=== PATIENT | male | born 1955 | race Caucasian/White ===

== ENCOUNTER 2019-03-27 08:11 | Outpatient (REF) | payer MEDICAID, SELFPAY ==
[2019-03-27 22:38] LABS: Anion Gap 9.7 mmol/L (3-11); BUN 7 mg/dL (7-18); CO2 28.3 mmol/L (21.0-32.0); Calcium 9.1 mg/dL (8.5-10.1); Calculated LDL 131; Chloride 105 mmol/L (98-107); Cholesterol 220 mg/dL (50-200); Glucose 89 mg/dL (70-100); HDL Cholesterol 33 mg/dL (40-60); Potassium 4.6 mmol/L (3.5-5.1); Sodium 143 mmol/L (136-145); Triglyceride 283 mg/dL (30-150)
== END 2019-03-27 08:31 ==
LOC: NCHCN 08:11
PROVIDERS: Visit Provider Family Medicine
DX: Z13.220 Encounter for screening for lipoid disorders (principal); Z13.228 Encounter for screening for other metabolic disorders; Z00.00 Encounter for general adult medical examination without abnormal findings
CPT/HCPCS: 80048; 80061; 83721

== ENCOUNTER 2022-08-05 10:39 | Outpatient (REF) | payer MEDICARE, MEDICAID, SELFPAY ==
[2022-08-05 17:09] LABS: Calculated LDL 133 mg/dL (<100); Cholesterol 220 mg/dL (<200); HDL Cholesterol 40 mg/dL (40-60); Triglyceride 236 mg/dL (<150)
== END 2022-08-05 10:40 | disposition home or self-care (01) ==
LOC: NCHCN 10:39
PROVIDERS: Visit Provider Family Medicine
DX: E78.5 Hyperlipidemia, unspecified (principal)
CPT/HCPCS: 80061

== ENCOUNTER 2022-08-17 18:08 | Outpatient (REF) | payer MEDICARE, BC, SELFPAY ==
[2022-08-17 14:50] LABS: Vitamin D 25 Total 35.6 ng/mL (30-100)
[2022-08-17 15:03] LABS: Vitamin B12 220 pg/mL (193-986)
== END 2022-08-17 18:09 | disposition home or self-care (01) ==
LOC: NCHCN 18:08
PROVIDERS: Visit Provider Family Medicine
DX: Z00.00 Encounter for general adult medical examination without abnormal findings (principal); I10 Essential (primary) hypertension; Z71.3 Dietary counseling and surveillance
CPT/HCPCS: 82306; 82607

== ENCOUNTER 2023-03-06 20:08 | Outpatient (REF) | payer MEDICARE, BC, SELFPAY ==
[2023-03-06 18:02] LABS: BUN 13 mg/dL (7-18); Calculated LDL 177 mg/dL (<100); Cholesterol 262 mg/dL (<200); Estimated GFR 83.01 (mL/min/1.73m2); HDL Cholesterol 42 mg/dL (40-60); Triglyceride 218 mg/dL (<150); Vitamin B12 346 pg/mL (193-986)
--- OUTSIDE RECORDS SUMMARY | 2023-03-06 20:13 | XMS_ITS | Summary of Care ---
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 Phone Unassigned, PCP - Unable to obtain Primary Care Physician Unavailable Encounter [facility] [id number] Date(s): 12/23/22 - 12/23/22 [facility] [address] [place] [address]- Encounter Diagnosis Sensation of foreign body in foot(Discharge Diagnosis) - 12/23/22 Discharge Disposition: HOME OR SELF CARE Attending Physician: Shital Wesley DO Admitting Physician: UNASSIGNED , ER DOCTOR Allergies, Adverse Reactions, Alerts No Known Allergies Assessment and Plan Extracted from: Title:ED Visit Note Author:Matthew Meadows APR N Date:12/23/22 Assessment/Plan Diagnosis List 1.??Sensation of foreign body in foot??(Other disturbances of skin sensation)(R20.8) RIGHT Foot injury treatment??(Foot injury treatment)([id number]) Orders: doxycycline, 100 mg, = 1 cap(s), PO, q12hr (interval), X 7 day(s), # 14 cap(s), 0 Refill(s), 12/23/22 12:29:00 EST, Pharmacy: [facility]/pharmacy #[id number], 1 cap(s) PO q12hr (interval),x7 day(s), 1, 177.8, cm, 12/23/22 10:29:00 EST, Height cm, 83, kg, 12/23/22 10:29:00 EST,... Royal Wrap Discharge Patient Wound Care ED I had my usual??and customary discussion??with the patient regarding??possible retained foreign body of the right foot, differential diagnosis,??medication prescribed and the indications for return to the emergency department for reevaluation??as well as for follow-up with the freight brakeman and the patient verbalized understanding and agrees with the plan of care. Patient Education Doxycycline tablets or capsules Foreign Body, Soft Tissue (Not Removed) Medications doxycycline hyclate 100 mg oral capsule 100 mg, = 1 cap(s), PO, q12hr (interval), X 7 day(s), # 14 cap(s), 0 Refill(s), 12/23/22 12:29:00 EST, Pharmacy: [facility]/pharmacy #[id number], 1 cap(s) PO q12hr (interval),x7 day(s), 1, 177.8, cm, 12/23/22 10:29:00 EST, Height cm, 83, kg, 12/23/22 10:29:00 EST,... Start Date: 12/23/22 Stop Date: 12/30/22 Status: Ordered Vital Signs Most recent to oldest [Reference Range]: 1 Temperature Oral [96.4-99.1 DegF] 98.5 D egF (12/23/22 10:29 AM) Pulse Rate [60-110 bpm] 86 bpm (12/23/22 10:29 AM) Respiratory Rate [12-20 br/min] 16 br/mi n (12/23/22 10:29 AM) BP Obtained By Blood pressure by anastasia hernández (12/23/22 10:29 AM) ED Laterality Left arm (12/23/22 10:29 AM) Blood Pressure [90-120/60-90 mmHg] 158/8 7mmHg *HI* (12/23/22 10:29 AM) Weight, Actual kg 83 kg (12/23/22 10:29 AM) Weight, Actual kg - manual 83 kg (12/23/22 10:29 AM) Type of Scale Used Standing (12/23/22 10:29 AM) Measured Weight Yes (12/23/22 10:29 AM) Height cm 177.8 cm (12/23/22 10:29 AM) EHUM Responses Feet/Inches (12/23/22 10:29 AM) Height Feet with Inches 5 ft (12/23/22 10:29 AM) Height Inches with Feet 10 inch(es) (12/23/22 10:29 AM) Height Inches 70 inch(es) (12/23/22 10:29 AM) Body Surface Area 2.0247 (12/23/22 10:29 AM) Body Mass Index (BMI) 26.3 kg/m2 (12/23/22 10:29 AM) [place] Body Weight Calculated 73 kg (12/23/22 10:29 AM) Social History Social History Type Response Smoking Status Never a smoker Sex Male Physician Emergency department Note * Matthew Meadows APRN: PERFORM Event Display: ED Physician Notes Authored Date: [id number] History of Present Illness Date/Time Seen:??12/23/2022 110 Patient Provided History:??Yes Medical Tech used:??No History limitation:??None Independent History Source:??_ ?? Chief Complaint:??Reason for Visit Narrative: R foot puncture wound ~2wk ago, denies ??pain (12/23/22 10:29:00) Mode of Arrival:??ED Mode of Arrival: Ambulatory/WC/Carried (12/23/22 10:29:00) PCP:??Primary Care Physician:?Unassigned , PCP - Unable to obtain Sex:??male Administrative Sex:??Male ?? HPI: Patient is a??67 Years??old??Male??presenting with a complaint of foreign body to the rightlateral foot onset 2 weeks ago. ??Patient thinks??he stepped on??a splinter or a thorn??causing it.??Patient??has been unable to remove it on his ??has tried as well??without success. ?? Physical Exam Vitals & Measurements Initial: T: 98.5 ??F (Oral) HR: 86 (Peripheral) BP: 158/87 RR: 16 SpO2: 98% WT: 83 kg BMI: 26.3 General: alert, No acute distress Cardiovascular:? regular rate/rhythm Respiratory: respirations even/unlabored Extremities: no deformity, 1??cm circular area of erythema??and tenderness??to the right lateral foot, no drainage noted, no foreign body palpated.?? Distal neurovascular status intact. Neurological: alert/oriented x 4, LOC normal for age?? Procedure Foreign Body Removal Performed by:??Self Indication:??foreign body right lateral foot [place] Protocol:??Time out was performed. Patient, side, site and procedure was verified. Consent:??Verbal??consent??was??obtained from the??patient??prior to the procedure. If able obtain consent indications, risks, and benefits explained at length. ?? The area was prepped and draped in sterile fashion and then anesthetized with??1 ml 1% lidocaine??local anesthesia. A??1??cm incision was made directly above the foreign body using an??11-blade scalpel. The incised area was bluntly probed with a??hemostat??with?? no??foreign body clearly identified. . The wound was then irrigated with??saline. The patient tolerated the procedure well and therewere no apparent complications. A sterile dressing was applied. ?? Medical Decision Making Patient declined??Tdap??stating that if we do not have plain tetanus??vaccination he will go to [facility] and get 1.?? Indicated area of??foreign body was??probed without??appreciation of a foreign body that was able to be removed. ??I discussed this with the patient??and that there could be a retained foreign body which is a plant matter and did not show up on the x- ray. ??Patient will be placed on antibiotics??and given a referral to a freight brakeman??for further evaluation and treatment the patient agrees to this plan of??care. ?? Radiology results reviewed. Assessment/Plan Diagnosis List 1.??Sensation of foreign body in foot??(Other disturbances of skin sensation)(R20.8) RIGHT Foot injury treatment??(Foot injury treatment)([id number]) Orders: doxycycline, 100 mg, = 1 cap(s), PO, q12hr (interval), X 7 day(s), # 14 cap(s), 0 Refill(s), 12/23/22 12:29:00 EST, Pharmacy: [facility]/pharmacy #[id number], 1 cap(s) PO q12hr (interval),x7 day(s), 1, 177.8, cm,12/23/22 10:29:00 EST, Height cm, 83, kg, 12/23/22 10:29:00 EST,... Royal Wrap Discharge Patient Wound Care ED I had my usual??and customary discussion??with the patient regarding??possible retained foreign body of the right foot, differential diagnosis,??medication prescribed and the indications for return to the emergency department for reevaluation??as well as for follow-up with the freight brakeman and the patient verbalized understanding and agrees with the plan of care. Patient Education Doxycycline tablets or capsules Foreign Body, Soft Tissue (Not Removed) Follow Up Follow Up with??Timmy Lira DPM, Podiatry When??Within 3 - 5 Days Comments: Call to arrange an appointment Seek medical care if symptoms worsen Where: [facility] [place] [address] Allergies NKA Problem List/Past Medical History Ongoing No qualifying data Historical No qualifying data Social History Tobacco Tobacco Use: Never a smoker (12/23/22) Medications Administered: Medications: lidocaine 1% injectable solution, 5 mL, Subcut (12/23/2022 11:45 EST) Not Administered: Medications: Motrin IB (Patient refused) Diagnostic Results Radiology Results??(12/22/22 00:00 - 12/23/22 14:19) ?? Foot Comp - Diagnostic Imaging ?Performed on: 12/23/2022 11:09?? IMPRESSION:? 1. No foreign body?? 2. No fracture?? 3. No soft tissue emphysema to suggest deep soft tissue infection? INTERPRETED BY: Jose Sequeira ?? Finalized On: 12/23/2022 11:19 ?? Electronically Signed By: Matthew Meadows APRN, on 12.23.2022 02:19 PM Electronically Signed By: Shital Wesley DO Note * Event Display: Foot Comp Authored Date: [id number] * Event Display: Foot Comp Authored Date: Exam Date/Time: 12/23/2022 11:09 Finalized On: 12/23/2022 11:19 Right foot 3 views 12/23/2022 11:09 AM History: Right foot puncture wound 2 weeks ago Findings: The osseous structures, articular surfaces, bone mineralization and alignment is normal. No soft tissue abnormality is appreciated.. No foreign body seen IMPRESSION: 1. No foreign body 2. No fracture 3. No soft tissue emphysema to suggest deep soft tissue infection RPRETED BY: Jose Sequeira Finalized On: 12/23/2022 11:19 Patient Care team information Care Team Personnel Name: Unassigned , PCP - Unable to obtain Member Role: PCP [employer] Name: Matthew Meadows APRN Position: ED Physician Disability Insurance Hearing Officer Member Role: [employer] Address: Address: [address] [place] [id number] Name: Shital Wesley DO Position: ED Physician Member Role: Attending Physician Address: Address: [address] [place] [id number] [place]
== END 2023-03-06 20:09 | disposition home or self-care (01) ==
LOC: NCHCN 20:08
PROVIDERS: Visit Provider Family Medicine
DX: E78.5 Hyperlipidemia, unspecified (principal); R20.2 Paresthesia of skin; R42 Dizziness and giddiness; R20.0 Anesthesia of skin
CPT/HCPCS: 80061; 84520; 82565; 82607

== ENCOUNTER 2023-08-30 10:07 | Outpatient (REF) | payer MEDICARE, BC, SELFPAY ==
[2023-08-30 16:14] LABS: Calculated LDL 157 mg/dL (<100); Cholesterol 241 mg/dL (<200); HDL Cholesterol 40 mg/dL (40-60); Triglyceride 224 mg/dL (<150); Vitamin B12 444 pg/mL (193-986)
== END 2023-08-30 10:08 | disposition home or self-care (01) ==
LOC: NCHCN 10:07
PROVIDERS: Visit Provider Family Medicine
DX: E78.5 Hyperlipidemia, unspecified (principal); E53.8 Deficiency of other specified B group vitamins
CPT/HCPCS: 80061; 82607

== ENCOUNTER 2024-03-08 10:10 | Outpatient (REF) | payer MEDICARE, BC, SELFPAY ==
[2024-03-08 14:53] LABS: Anion Gap 8.3 mmol/L (3-11); BUN 12 mg/dL (7-18); CO2 31.7 mmol/L (21.0-32.0); CREATININE 0.9 mg/dL (0.70-1.30); Calcium 9.2 mg/dL (8.5-10.1); Calculated LDL 138 mg/dL (<100); Chloride 106 mmol/L (98-107); Cholesterol 221 mg/dL (<200); Estimated GFR 93.61 (mL/min/1.73m2); Glucose 96 mg/dL (74-106); HDL Cholesterol 39 mg/dL (40-60); Potassium 4.6 mmol/L (3.5-5.1); Sodium 146 mmol/L (136-145); Triglyceride 222 mg/dL (<150); Vitamin B12 430 pg/mL (193-986)
== END 2024-03-08 10:11 | disposition home or self-care (01) ==
LOC: NCHCN 10:10
PROVIDERS: Visit Provider Family Medicine
DX: I10 Essential (primary) hypertension (principal); E78.5 Hyperlipidemia, unspecified; E53.9 Vitamin B deficiency, unspecified
CPT/HCPCS: 80048; 80061; 82607

== ENCOUNTER 2025-08-26 09:37 | Outpatient (REF) | payer MEDICARE, BC, SELFPAY ==
[2025-08-26 16:23] LABS: Anion Gap 6.8 mmol/L (3-11); BUN 11 mg/dL (7-18); CO2 28.2 mmol/L (21.0-32.0); Calcium 8.9 mg/dL (8.5-10.1); Chloride 105 mmol/L (98-107); Cholesterol 231 mg/dL (<200); Glucose 96 mg/dL (74-106); HDL Cholesterol 39 mg/dL (>or=40); Potassium 4.1 mmol/L (3.5-5.1); Sodium 140 mmol/L (136-145); Vitamin B12 587 pg/mL (193-986)
[2025-08-26 23:17] LABS: PSA, Screening 6.5 ng/mL (<=4.5)
== END 2025-08-26 09:38 | disposition home or self-care (01) ==
LOC: NCHCN 09:37
PROVIDERS: Visit Provider Family Medicine
DX: E78.5 Hyperlipidemia, unspecified (principal); E53.9 Vitamin B deficiency, unspecified; I10 Essential (primary) hypertension; Z12.5 Encounter for screening for malignant neoplasm of prostate
CPT/HCPCS: 80048; 80061; 84153; 82607

== ENCOUNTER 2025-09-19 10:26 | Outpatient (REF) | payer MEDICARE, BC, SELFPAY ==
[2025-09-19 22:18] LABS: PSA, Diagnostic 3.3 ng/mL (<=4.5)
[2025-09-24 09:24] LABS: HDL Particles 32 mcmol/L; LDL Cholesterol (NMR) 178 mg/dL; LDL Particles 2382 nmol/L
== END 2025-09-19 10:27 | disposition home or self-care (01) ==
LOC: NCHCN 10:26
PROVIDERS: Visit Provider Family Medicine
DX: E78.5 Hyperlipidemia, unspecified (principal); R97.20 Elevated prostate specific antigen [PSA]
CPT/HCPCS: 83704; 84153